=== PATIENT | female | born 1970 | race African-American/Black ===

== ENCOUNTER 2017-09-28 20:57 | Emergency (ER) | payer OTHER ==
[~2017-09-28] VITALS: Ht 170.2 cm; Wt 69.3 kg
[2017-09-28 21:02] VITALS: BP 197/94; PULSE 72; RESP 24; TEMP 98.8; O2SAT 100
[2017-09-28] MEDS ORDERED: SODIUM CHLOR 0.9% 1000 ML INJ 1,000 ML IV SCH (21:22)
--- NOTE | 2017-09-28 21:27 | PD ---
HPI Chief Complaint: GI Complaint Time Seen by Provider: 21:08 Travel History International Travel<30 days: No Contact w/Intl Traveler<30days: No Traveled to known affect area: No History of Present Illness HPI The patient is a 47-year-old female who presents to the emergency department for nausea, vomiting, diarrhea, and abdominal pain. The patient was traveling from [facility] back to [place], [place], where she lives. The patient developed symptoms at 2 PM. The patient developed nausea that was followed by vomiting and diarrhea. The patient describes the diarrhea as yellow. She also complains of upper epigastric abdominal pain that is crampy, radiating to the left and the right, without any alleviating factors. The patient normally takes Percocet for chronic low back pain, however, ran out of her Percocet. The patient does have a history of previous weight loss surgery, tummy tuck, and hysterectomy with previous small bowel obstruction. She denies any known history of gallbladder pathology. She denies any dysuria, frequency, or urgency. Symptoms are moderate. There is been no fever, chills, or sweats. PFSH Past Medical History ?: Not Past Surgical History Narrative Surgical Weight loss surgery, tummy tuck, hysterectomy Social History Tobacco Use: No Allergies-Medications (Allergen,Severity, Reaction): Coded Allergies: ketorolac (Verified Allergy, Severe, Hives, 09/28/17) latex (Verified Allergy, Severe, Burning, 09/28/17) morphine (Verified Allergy, Severe, Hives, 09/28/17) Reported Meds & Prescriptions Reported Meds & Active Scripts Active Reported Imodium A-D (Loperamide HCl) 2 Mg Tablet 2 Mg PO Percocet (Oxycodone-Acetaminophen) 10-325 mg Tab 15 Tab PO Q4H PRN Review of Systems Except as stated in HPI: all other systems reviewed are Neg General / Constitutional: No: Fever, Chills Cardiovascular: No: Chest Pain or Discomfort Respiratory: No: Shortness of Breath Gastrointestinal: Positive: Nausea, Vomiting, Diarrhea, Abdominal Pain Genitourinary: No: Dysuria Musculoskeletal: Positive: Pain (Chronic low back pain) Physical Exam Narrative GENERAL: Awake, alert, 47-year-old female appears her stated age and is in no acute respiratory distress. SKIN: Focused skin assessment warm/dry. HEAD: Atraumatic. Normocephalic. EYES: No injection or drainage. ENT: No nasal bleeding or discharge. Mucous membranes pink and moist. NECK: Trachea midline. No JVD. CARDIOVASCULAR: Regular rate and rhythm. No murmur appreciated. RESPIRATORY: No accessory muscle use. Clear to auscultation. Breath sounds equal bilaterally. GASTROINTESTINAL: Abdomen soft, tender to palpation epigastrium. Mild guarding but no rigidity. MUSCULOSKELETAL: No obvious deformities. No clubbing. No cyanosis. No edema. Well manicured fingernails. NEUROLOGICAL: Awake and alert. No obvious cranial nerve deficits. Motor grossly within normal limits. Normal speech. PSYCHIATRIC: Appropriate mood and affect; insight and judgment normal. Data Data Last Documented VS Vital Signs Date Time Temp Pulse Resp B/P (MAP) Pulse Ox O2 Delivery O2 Flow Rate FiO2 09/28/17 22:19 20 09/28/17 21:55 55 180/90 (120) 98 09/28/17 21:02 98.8 Orders Orders Complete Blood Count With Diff (09/28/17 21:22) Comprehensive Metabolic Panel (09/28/17 21:22) Lipase (09/28/17 21:22) Lactic Acid (09/28/17 21:22) Urinalysis - C+S If Indicated (09/28/17 21:22) Ct Abd/Pel W Iv Contrast(Rout) (09/28/17 21:22) Iv Access Insert/Monitor (09/28/17 21:22) Ecg Monitoring (09/28/17 21:22) Oximetry (09/28/17 21:22) Ondansetron Inj (Zofran Inj) (09/28/17 21:30) Sodium Chlor 0.9% 1000 Ml Inj (Ns 1000 M (09/28/17 21:22) Sodium Chloride 0.9% Flush (Ns Flush) (09/28/17 21:30) Famotidine Inj (Pepcid Inj) (09/28/17 21:30) Dicyclomine Inj (Bentyl Inj) (09/28/17 21:30) Oral Contrast - Adult (09/28/17 21:26) Hydromorphone Pf Inj (Dilaudid Pf Inj) (09/28/17 22:00) Urine Culture (09/28/17 21:30) Diatrizoate Liq ( Gastroli Liq) (09/28/17 22:09) Potassium Chlor 20 Meq Premix (Kcl 20 Me (09/28/17 22:15) Iohexol 350 Inj (Omnipaque 350 Inj) (09/28/17 22:41) Hydromorphone Pf Inj (Dilaudid Pf Inj) (09/28/17 23:00) Diphenhydramine Inj (Benadryl Inj) (09/28/17 23:00) Potassium Chloride (Kcl) (09/28/17 23:45) Ed Discharge Order (09/28/17 23:42) Labs Laboratory Tests Test 09/28/17 21:30 09/28/17 21:45 Urine Collection Type CLEAN CATCH Urine Color YELLOW Urine Turbidity SL CLOUDY Urine pH 6.0 Urine Specific [place] GREATER/EQUAL 1.030 Urine Protein 30 mg/dL Urine Glucose (UA) NEG mg/dL Urine Ketones 40 mg/dL Urine Occult Blood MOD Urine Nitrite NEG Urine Bilirubin NEG Urine Urobilinogen 0.2 MG/DL Urine Leukocyte Esterase NEG Urine RBC 4-9 /hpf Urine WBC 0-2 /hpf Urine Squamous Epithelial Cells 6-8 /hpf Urine Bacteria MOD /hpf Urine Mucus OCC /lpf Microscopic Urinalysis Comment CULTURE INDICATED White Blood Count 5.0 TH/MM3 Red Blood Count 4.49 MIL/MM3 Hemoglobin 13.1 GM/DL Hematocrit 41.0 % Mean Corpuscular Volume 91.2 FL Mean Corpuscular Hemoglobin 29.2 PG Mean Corpuscular Hemoglobin Concent 32.0 % Red Cell Distribution Width 14.4 % Platelet Count 280 TH/MM3 Mean Platelet Volume 8.4 FL Neutrophils (%) (Auto) 73.0 % Lymphocytes (%) (Auto) 17.9 % Monocytes (%) (Auto) 8.1 % Eosinophils (%) (Auto) 0.4 % Basophils (%) (Auto) 0.6 % Neutrophils # (Auto) 3.7 TH/MM3 Lymphocytes # (Auto) 0.9 TH/MM3 Monocytes # (Auto) 0.4 TH/MM3 Eosinophils # (Auto) 0.0 TH/MM3 Basophils # (Auto) 0.0 TH/MM3 CBC Comment DIFF FINAL Differential Comment Blood Urea Nitrogen 13 MG/DL Creatinine 0.67 MG/DL Random Glucose 101 MG/DL Total Protein 8.3 GM/DL Albumin 4.0 GM/DL Calcium Level 9.0 MG/DL Alkaline Phosphatase 80 U/L Aspartate Amino Transf (AST/SGOT) 11 U/L Alanine Aminotransferase (ALT/SGPT) 10 U/L Total Bilirubin 0.4 MG/DL Sodium Level 138 MEQ/L Potassium Level 3.1 MEQ/L Chloride Level 103 MEQ/L Carbon Dioxide Level 26.5 MEQ/L Anion Gap 9 MEQ/L Estimat Glomerular Filtration Rate 115 ML/MIN Lactic Acid Level 1.2 mmol/L Lipase 133 U/L MDM Medical Decision Making Medical Screen Exam Complete: Yes Emergency Medical Condition: Yes Medical Record Reviewed: Yes Interpretation(s) Laboratory Tests Test 09/28/17 21:30 09/28/17 21:45 Urine Collection Type CLEAN CATCH Urine Color YELLOW Urine Turbidity SL CLOUDY Urine pH 6.0 Urine Specific [place] GREATER/EQUAL 1.030 Urine Protein 30 mg/dL Urine Glucose (UA) NEG mg/dL Urine Ketones 40 mg/dL Urine Occult Blood MOD Urine Nitrite NEG Urine Bilirubin NEG Urine Urobilinogen 0.2 MG/DL Urine Leukocyte Esterase NEG Urine RBC 4-9 /hpf Urine WBC 0-2 /hpf Urine Squamous Epithelial Cells 6-8 /hpf Urine Bacteria MOD /hpf Urine Mucus OCC /lpf Microscopic Urinalysis Comment CULTURE INDICATED White Blood Count 5.0 TH/MM3 Red Blood Count 4.49 MIL/MM3 Hemoglobin 13.1 GM/DL Hematocrit 41.0 % Mean Corpuscular Volume 91.2 FL Mean Corpuscular Hemoglobin 29.2 PG Mean Corpuscular Hemoglobin Concent 32.0 % Red Cell Distribution Width 14.4 % Platelet Count 280 TH/MM3 Mean Platelet Volume 8.4 FL Neutrophils (%) (Auto) 73.0 % Lymphocytes (%) (Auto) 17.9 % Monocytes (%) (Auto) 8.1 % Eosinophils (%) (Auto) 0.4 % Basophils (%) (Auto) 0.6 % Neutrophils # (Auto) 3.7 TH/MM3 Lymphocytes # (Auto) 0.9 TH/MM3 Monocytes # (Auto) 0.4 TH/MM3 Eosinophils # (Auto) 0.0 TH/MM3 Basophils # (Auto) 0.0 TH/MM3 CBC Comment DIFF FINAL Differential Comment Blood Urea Nitrogen 13 MG/DL Creatinine 0.67 MG/DL Random Glucose 101 MG/DL Total Protein 8.3 GM/DL Albumin 4.0 GM/DL Calcium Level 9.0 MG/DL Alkaline Phosphatase 80 U/L Aspartate Amino Transf (AST/SGOT) 11 U/L Alanine Aminotransferase (ALT/SGPT) 10 U/L Total Bilirubin 0.4 MG/DL Sodium Level 138 MEQ/L Potassium Level 3.1 MEQ/L Chloride Level 103 MEQ/L Carbon Dioxide Level 26.5 MEQ/L Anion Gap 9 MEQ/L Estimat Glomerular Filtration Rate 115 ML/MIN Lactic Acid Level 1.2 mmol/L Lipase 133 U/L Differential Diagnosis Differential diagnosis includes gastroenteritis, partial small bowel obstruction , pancreatitis, opiate withdrawal, ileus, enteritis, colitis, dehydration. Narrative Course IV was established, labs are drawn and sent, and the patient was placed on cardiac telemetry monitoring and continuous pulse oximetry monitoring. The patient was administered Dilaudid, Zofran, Bentyl, and IV fluids. The patient states she is allergic to morphine and Toradol. CT of the abdomen and pelvis with oral and IV contrast was ordered to evaluate for possible small bowel obstruction. The patient's potassium was low at 3.1, therefore, was replaced intravenously. The patient's white count was normal. Lactic acid is within normal limits. LFTs and lipase are unremarkable. CT the abdomen and pelvis was unremarkable. The patient was reevaluated at 11:48 PM, her symptoms have significantly improved. She will be provided a copy of her labs and CT results at discharge. She is advised to follow-up with her primary physician. Return if symptoms worsen or progress. Diagnosis Primary Impression: Nausea vomiting and diarrhea Additional Impression: Abdominal pain Qualified Codes: R10.84 - Generalized abdominal pain Patient Instructions: General Instructions Additional Instructions: Please provide the patient a copy of her CT results and lab results at discharge. Follow-up with her primary physician. Return if symptoms worsen or progress. Clear liquid diet advance as tolerated. Disposition: 01 DISCHARGE HOME Condition: Stable Lane Mendoza MD Sep 28, 2017 21:27
[2017-09-28] MEDS ORDERED: PERC10TA27 PO ×2 (21:29)
[2017-09-28] MEDS ORDERED: DICYCLOMINE HCL 20 MG/2 ML VIAL IM ONE (21:30)
[2017-09-28] MEDS ORDERED: ONDANSETRON HCL 4 MG/2 ML VIAL IVP ONE (21:30)
[2017-09-28] MEDS ORDERED: HYDROmorphone HCL PF 1 MG/ML VIAL IVS ONE (21:30)
[2017-09-28] MEDS ORDERED: FAMOTIDINE 20 MG/2 ML VIAL IV PUSH ONE (21:30)
[2017-09-28] MEDS ORDERED: SODIUM CHLORIDE 0.9% FLUSH 10 ML FLUSH IV FLUSH PRN (21:30)
[2017-09-28 21:44] LABS: BLOOD, URINE MOD (NEG); GLUCOSE,URINE NEG (NEG); KETONE, URINE 40 mg/dL (NEG); NITRITE,URINE NEG (NEG); URINE COLOR YELLOW (YELLW/STRAW); URINE LEUKOCYTE ESTERASE NEG (NEG)
[2017-09-28 21:50] LABS: BILIRUBIN, URINE NEG (NEG)
[2017-09-28 21:52] LABS: MUCUS URINE OCC /lpf (OCC)
[2017-09-28 21:52] LABS: AUTOMATED NEUTROPHIL # 3.7 TH/MM3 (1.8-7.7); BASOPHIL % 0.6 % (0.0-2.0); EOSINOPHIL % 0.4 % (0.0-4.0); HEMOGLOBIN 13.1 GM/DL (11.6-15.3); LYMPH % 17.9 % (9.0-44.0); LYMPHOCYTE # 0.9 TH/MM3 (1.0-4.8); MEAN CELL VOLUME 91.2 FL (80.0-100.0); MEAN CORPUSCULAR HEMOGLOBIN 29.2 PG (27.0-34.0); MEAN PLATELET VOLUME 8.4 FL (7.0-11.0); MONO % 8.1 % (0.0-8.0); MONOCYTE # 0.4 TH/MM3 (0-0.9); PLATELET COUNT 280 TH/MM3 (150-450); RED BLOOD COUNT 4.49 MIL/MM3 (4.00-5.30); RED CELL DISTRIBUTION WIDTH 14.4 % (11.6-17.2)
[2017-09-28 21:54] LABS: BACTERIA, URINE MOD /hpf; WBC, URINE 0-2 /hpf (0-5)
[2017-09-28 21:55] VITALS: BP 180/90; PULSE 55; RESP 20; O2SAT 98
[2017-09-28 22:00] VITALS: BP 180/95; PULSE 55; RESP 20; O2SAT 98
[2017-09-28 22:00] LABS: CHLORIDE 103 MEQ/L (98-107); SODIUM (NA) 138 MEQ/L (136-145)
[2017-09-28] MEDS ORDERED: HYDROmorphone HCL PF 2 MG/ML VIAL IV ONE (22:00)
[2017-09-28 22:04] LABS: BICARBONATE 26.5 MEQ/L (21.0-32.0); BLOOD UREA NITROGEN 13 MG/DL (7-18); GLUCOSE,RANDOM 101 MG/DL (74-106)
[2017-09-28 22:06] LABS: ALT (GPT) 10 U/L (10-53); AST (GOT) 11 U/L (15-37); CREATININE 0.67 MG/DL (0.50-1.00); GLOMERULAR FILTRATION RATE 115 ML/MIN (>89)
[2017-09-28 22:08] LABS: TOTAL BILIRUBIN ADULT 0.4 MG/DL (0.2-1.0); TOTAL PROTEIN 8.3 GM/DL (6.4-8.2)
[2017-09-28 22:09] LABS: ALKALINE PHOSPHATASE 80 U/L (45-117)
[2017-09-28] MEDS ORDERED: DIATRIZOATE MEGLUM/DIATRIZOATE SOD 9 ML CUP ONE (22:09)
[2017-09-28] MEDS ORDERED: POTASSIUM CHLOR 20 MEQ PREMIX 100 ML IV ONE (22:15)
[2017-09-28] MEDS ORDERED: LOPE2TAB18 PO (22:23)
[2017-09-28] MEDS ORDERED: IOHEXOL 350 MG/ML 10 ML VIAL (for RAD DIAG) IVCONTRAST ONE (22:41)
--- NOTE | 2017-09-28 22:51 | RADRPT ---
EXAM DATE/TIME: 09/28/2017 22:33 [facility] COMPARISON: No previous studies available for comparison. INDICATIONS : Bilateral upper quadrant pain. IV CONTRAST: 100 cc Omnipaque 350 (iohexol) IV ORAL CONTRAST: Patient refused oral contrast. RADIATION DOSE: 8.72 CTDIvol (mGy) MEDICAL HISTORY : SURGICAL HISTORY : Hysterectomy. Tummy tuck, gastric sleeve, bowel blockage repair. ENCOUNTER: Initial ACUITY: 1 day PAIN SCALE: 10/10 LOCATION: Bilateral upper quadrant TECHNIQUE: Volumetric scanning of the abdomen and pelvis was performed. Using automated exposure control and ad justment of the mA and/or kV according to patient size, radiation dose was kept as low as reasonably achievable to obtain optimal diagnostic quality images. DICOM format image data is available electro nically for review and comparison. FINDINGS: The lower lungs are clear. The liver and gallbladder are unremarkable Gastric sleeve is noted Spleen and pancreas appear normal The adrenals and kidneys are unremarkable There is no ascites or adenopathy In the pelvis multiple phleboliths are noted. Adnexal regions are unremarkable. There is no ascite s or adenopathy. Abdominal martínez intact Review of bone windows reveals only degenerative changes. CONCLUSION: Negative for an acute process. Previous gastric surgery. I do not see inflammatory changes Zay Milan MD FACR on September 28, 2017 at 22:46 Board Certified Radiologist. This report was verified electronically.
[2017-09-28 23:00] VITALS: BP 153/91; PULSE 70; RESP 20; O2SAT 98
[2017-09-28] MEDS ORDERED: HYDROmorphone HCL PF 2 MG/ML VIAL IV PUSH ONE (23:00)
[2017-09-28] MEDS ORDERED: diphenhydrAMINE HCL 50 MG/ML VIAL IV PUSH ONE (23:00)
[2017-09-28] MEDS ORDERED: POTASSIUM CHLORIDE 20 MEQ CONTROLLED RELEASE TAB PO ONE (23:45)
[2017-09-29 00:09] VITALS: BP 138/80
== END 2017-09-29 00:18 | disposition home or self-care (01) ==
LOC: PHED 20:57
DX: R11.2 Nausea with vomiting, unspecified (principal); R19.7 Diarrhea, unspecified; R10.84 Generalized abdominal pain; B96.1 Klebsiella pneumoniae [K. pneumoniae] as the cause of diseases classified elsewhere; Z88.5 Allergy status to narcotic agent
CPT/HCPCS: 74177; 80053; 81001; 83605; 83690; 85025; 87077; 87086; 87186; 96361; 96372; 96374; 96375; 96376; 99285; J0500; J1170; J1200; J2405; J3480; J7030; Q9963; Q9967